=== PATIENT | male | born 1970 | race Caucasian/White ===

== ENCOUNTER 2017-10-28 09:09 | Outpatient (CLI) | payer OTHER ==
[2017-10-28 11:06] LABS: eGFR (African) > 60; eGFR (Non-African) > 60
== END 2017-10-28 09:11 ==
LOC: LAB 09:09
PROVIDERS: ATTEND Physician Assistant
DX: Z00.00 Encounter for general adult medical examination without abnormal findings (principal); Z13.6 Encounter for screening for cardiovascular disorders; Z12.5 Encounter for screening for malignant neoplasm of prostate
CPT/HCPCS: 36415; 80053; 80061; G0103